=== PATIENT | male | born 1970 | race Caucasian/White ===

== ENCOUNTER 2018-10-02 10:03 | Outpatient (CLI) | payer OTHER ==
[2018-10-02 14:59] LABS: BASOPHILS # (AUTO) 0.1 10^3/uL (0.0-0.1); BASOPHILS % (AUTO) 0.9 %; EOSINOPHILS # (AUTO) 0.3 10^3/uL (0.0-0.7); HGB - HEMOGLOBIN 13.3 g/dL (14.0-18.0); LYMPHOCYTES # (AUTO) 1.9 10^3/uL (1.5-3.5); LYMPHOCYTES % (AUTO) 27.2 %; MEAN CORPUSCULAR HEMOGLOBIN 30.9 pg (27.0-31.0); MEAN CORPUSCULAR HGB CONC 34.5 g/dL (32.0-36.0); MEAN CORPUSCULAR VOLUME 89.5 fL (80.0-94.0); MEAN PLATELET VOLUME 8.6 fL (7.4-11.4); MONOCYTES # (AUTO) 0.4 10^3/uL (0.0-1.0); MONOCYTES % (AUTO) 5.8 %; NEUTROPHILS # (AUTO) 4.3 10^3/uL (1.5-6.6); NEUTROPHILS % (AUTO) 62.1 %; PLT - PLATELET COUNT 274 10^3/uL (130-450); RED CELL DISTRIBUTION WIDTH 13.2 % (12.0-15.0); WHITE BLOOD COUNT 6.9 x10^3/uL (4.8-10.8)
[2018-10-02 15:40] LABS: CHOL/HDL RATIO 4.1 (<5.0); CHOLESTEROL 190 mg/dL; HDL CHOLESTEROL 46 mg/dL; LDL CHOLESTEROL,CALCULATED 102 mg/dL; LDL/HDL RATIO 2.2 (<3.6); VLDL CHOLESTEROL 42 mg/dL
== END 2018-10-02 23:59 | disposition home or self-care (01) ==
LOC: LAB.WCP 10:03
PROVIDERS: ATTEND Family Medicine
DX: R22.1 Localized swelling, mass and lump, neck (principal)
CPT/HCPCS: 36415; 80061; 83721; 84443; 85025

== ENCOUNTER 2018-10-06 15:46 | Outpatient (CLI) | payer OTHER ==
--- NOTE | 2018-10-09 09:56 | Ultrasound Report ---
Reason: LOCALIZED SWELLING ON NECK Procedure Date: 10/06/2018 Accession Number: [id number] / [id number] Procedure: US - Head or Neck Soft Tissue CPT Code: FULL RESULT: EXAM: NECK ULTRASOUND EXAM DATE: 10/06/2018 03:52 PM. CLINICAL HISTORY: LOCALIZED SWELLING ON NECK. COMPARISON: None. TECHNIQUE: Real-time sonographic imaging was performed by the security alarm installer utilizing color-flow. Multiple product sales representative static images were saved for review. FINDINGS: The palpable region of the left postauricular is a vascular heterogeneous 1.7 x 0.9 x 0.7 cm density. This does not have the typical appearance of a lymph node. This is adjacent to parotid gland. Portions of parotid gland seen are unremarkable. IMPRESSION: Indeterminate post auricular vascular heterogeneous 1.7 x 0.9 x 0.7 cm density. Further evaluation could be with CT RADIA
== END 2018-10-06 15:47 | disposition home or self-care (01) ==
LOC: DI 15:46
PROVIDERS: ATTEND Family Medicine
DX: R22.1 Localized swelling, mass and lump, neck (principal)
CPT/HCPCS: 76536

== ENCOUNTER 2018-10-18 14:42 | Outpatient (CLI) | payer OTHER ==
[2018-10-18] MEDS ORDERED: IOVERSOL 320 100 ML VIAL IVP ONE ×2 (14:55→16:22)
--- NOTE | 2018-10-18 15:51 | CT Report ---
Reason: LOCALIZED SWELLING ON NECK Procedure Date: 10/18/2018 Accession Number: [id number] / [id number] Procedure: CT - Neck Soft Tissue W/ CPT Code: FULL RESULT: EXAM: CT SOFT TISSUE NECK WITH CONTRAST. EXAM DATE: 10/18/2018 03:10 PM. HISTORY: 48-year-old male, localized swelling on neck. COMPARISONS: Ultrasound soft tissue neck 10/06/2018 TECHNIQUE: Routine soft tissue neck CT protocol. Reconstructions: Coronal and sagittal. IV contrast: 80 cc Optiray 320. In accordance with CT protocol optimization, one or more of the following dose reduction techniques were utilized for this exam: automated exposure control, adjustment of mA and/or KV based on patient size, or use of iterative reconstructive technique. FINDINGS: Visualized Intracranial Contents: Unremarkable. Orbits: Symmetric and unremarkable. Sinuses: Minimal mucosal thickening bilateral maxillary sinuses. The remaining visualized paranasal sinuses are clear. The mastoid air cells are clear. Oral cavity: The visualized oral cavity is unremarkable. The floor of the mouth is symmetric. Pharynx : Pharyngeal mucosa is unremarkable. The infratemporal fossa, parapharyngeal spaces, and retropharyngeal space are unremarkable. The base of the tongue is symmetric and unremarkable. The airway is patent. Larynx: Larynx and supraglottic airway are patent without mass lesion. Vocal cords are symmetric. The visualized trachea is unremarkable. Parotid and Submandibular Glands: Symmetric and unremarkable. Lymph Nodes: No enlarged lymph nodes are identified in the cervical, supraclavicular, and visualized superior mediastinal regions. Soft tissues: Soft tissues are unremarkable. No mass lesion or abnormal enhancement. Specifically, no soft tissue mass is seen underlying the BB marker, which is located inferior to the left parotid gland (series 3 image 49, series 5 image 47). Nonspecific vessels are seen within the underlying fat. Vascular Structures: Unremarkable. Thyroid Gland: There is an 8 mm hypodense lesion within the right thyroid lobe (series 3 image 104). Given subcentimeter size, no further follow-up is suggested. Lung: The visualized lung apices are clear. Bones: No evidence of acute fracture or malalignment. There are mild degenerative changes. Other: None. IMPRESSION: 1. Soft tissues are unremarkable. No mass lesion or abnormal enhancement. Specifically, no soft tissue mass is seen underlying the BB marker, which is located inferior to the left parotid gland (series 3 image 49, series 5 image 47). Nonspecific vessels are seen within the underlying fat. 2. No evidence of cervical adenopathy, abscess, or mucosal abnormality. 3. There is an 8 mm hypodense lesion within the right thyroid lobe (series 3 image 104). Given subcentimeter size, no further follow-up is suggested. RADIA
== END 2018-10-18 14:43 | disposition home or self-care (01) ==
LOC: DI 14:42
PROVIDERS: ATTEND Family Medicine
DX: E07.89 Other specified disorders of thyroid (principal)
CPT/HCPCS: 70491; Q9967

== ENCOUNTER 2020-02-28 08:00 | Outpatient (CLI) | payer OTHER ==
[2020-02-28 13:30] LABS: BASOPHILS # (AUTO) 0.1 10^3/uL (0.0-0.1); BASOPHILS % (AUTO) 0.9 %; EOSINOPHILS # (AUTO) 0.2 10^3/uL (0.0-0.7); EOSINOPHILS % (AUTO) 2.8 %; HGB - HEMOGLOBIN 13.9 g/dL (14.0-18.0); LYMPHOCYTES # (AUTO) 1.6 10^3/uL (1.5-3.5); LYMPHOCYTES % (AUTO) 27.3 %; MEAN CORPUSCULAR HEMOGLOBIN 29.4 pg (27.0-31.0); MEAN CORPUSCULAR HGB CONC 32.9 g/dL (32.0-36.0); MEAN CORPUSCULAR VOLUME 89.6 fL (80.0-94.0); MEAN PLATELET VOLUME 10.1 fL (7.4-11.4); MONOCYTES # (AUTO) 0.3 10^3/uL (0.0-1.0); MONOCYTES % (AUTO) 5.6 %; NEUTROPHILS # (AUTO) 3.6 10^3/uL (1.5-6.6); NEUTROPHILS % (AUTO) 63.1 %; PLT - PLATELET COUNT 315 10^3/uL (130-450); RED BLOOD COUNT 4.72 10^6/uL (4.70-6.10); RED CELL DISTRIBUTION WIDTH 12.8 % (12.0-15.0); WHITE BLOOD COUNT 5.7 x10^3/uL (4.8-10.8)
[2020-02-28 13:44] LABS: ALBUMIN/GLOBULIN RATIO 1.3 (1.0-2.2); ALKALINE PHOSPHATASE 49 IU/L (42-121); ALT ALANINE AMINOTRANSFERASE 30 IU/L (10-60); AST ASPARTATE AMINOTRANSFERASE 25 IU/L (10-42); BILIRUBIN,TOTAL 0.7 mg/dL (0.2-1.0); BUN - BLOOD UREA NITROGEN 27 mg/dL (6-20); CARBON DIOXIDE - CO2 23 mmol/L (21-32); CHLORIDE 105 mmol/L (101-111); CHOL/HDL RATIO 2.9 (<5.0); CHOLESTEROL 178 mg/dL; CREATININE 0.8 mg/dL (0.6-1.2); GLUCOSE 121 mg/dL (70-100); HDL CHOLESTEROL 61 mg/dL; LDL CHOLESTEROL,CALCULATED 100 mg/dL; LDL/HDL RATIO 1.6 (<3.6); SODIUM 135 mmol/L (135-145); TOTAL PROTEIN 7.1 g/dL (6.7-8.2); VLDL CHOLESTEROL 17 mg/dL
== END 2020-02-28 08:01 | disposition home or self-care (01) ==
LOC: LAB.WCP 08:00
PROVIDERS: ATTEND Family Medicine
DX: I10 Essential (primary) hypertension (principal); N52.9 Male erectile dysfunction, unspecified; Z12.5 Encounter for screening for malignant neoplasm of prostate
CPT/HCPCS: 36415; 80053; 80061; 81599; 83721; 84153; 84270; 84402; 84403; 84443; 85025

== ENCOUNTER 2020-12-02 13:57 | Outpatient (CLI) | payer OTHER ==
--- NOTE | 2020-12-02 15:56 | XRAY Report ---
PROCEDURE: Lumbar Spine Complete INDICATIONS: LOW BACK PAIN, CHRONIC TECHNIQUE: views of the lumbar spine were acquired. COMPARISON: None. FINDINGS: Bones: 5 [id number]-iyt-[id number] vertebrae are present. Disc space narrowing, endplate osteophyte formation , and facet hypertrophy L3-L4, L4-L5, and L5-S1. There is normal bony alignment. No vertebral body c ompression fractures. No suspicious bony lesions. Soft tissues: Overlying bowel gas pattern is normal. No suspicious soft tissue calcifications. IMPRESSION: Degenerative disc and facet disease. No acute fracture. No osseous lesion. If symptoms a nd/or clinical suspicion for pathology continue, further assessment with repeat plain films, or advan nuria imaging (e.g., CT, MRI, or bone scan) is recommended for further assessment. Reviewed by: Josh Luque MD on 12/02/2020 3:54 PM PST Approved by: Josh Luque MD on 12/02/2020 3:54 PM PST Station ID: [id number]
== END 2020-12-02 13:58 | disposition home or self-care (01) ==
LOC: DI 13:57
PROVIDERS: ATTEND Family Medicine
DX: M54.5 Low back pain (principal); G89.29 Other chronic pain; M51.36 Other intervertebral disc degeneration, lumbar region

== ENCOUNTER 2022-08-06 09:19 | Outpatient (CLI) | payer OTHER ==
[2022-08-06 12:10] LABS: BASOPHILS # (AUTO) 0.1 10^3/uL (0.0-0.1); BASOPHILS % (AUTO) 0.9 %; EOSINOPHILS # (AUTO) 0.2 10^3/uL (0.0-0.7); EOSINOPHILS % (AUTO) 2.9 %; HCT - HEMATOCRIT 45.8 % (42.0-52.0); HGB - HEMOGLOBIN 15.3 g/dL (14.0-18.0); LYMPHOCYTES # (AUTO) 1.7 10^3/uL (1.5-3.5); LYMPHOCYTES % (AUTO) 28.7 %; MEAN CORPUSCULAR HEMOGLOBIN 30.6 pg (27.0-31.0); MEAN CORPUSCULAR HGB CONC 33.4 g/dL (32.0-36.0); MEAN CORPUSCULAR VOLUME 91.6 fL (80.0-94.0); MEAN PLATELET VOLUME 10.2 fL (7.4-11.4); MONOCYTES # (AUTO) 0.4 10^3/uL (0.0-1.0); MONOCYTES % (AUTO) 6.8 %; NEUTROPHILS # (AUTO) 3.6 10^3/uL (1.5-6.6); NEUTROPHILS % (AUTO) 60.4 %; PLT - PLATELET COUNT 303 10^3/uL (130-450); RED CELL DISTRIBUTION WIDTH 12.1 % (12.0-15.0); WHITE BLOOD COUNT 5.9 x10^3/uL (4.8-10.8)
[2022-08-06 12:40] LABS: ALBUMIN 4.5 g/dL (3.2-5.5); ALBUMIN/GLOBULIN RATIO 1.4 (1.0-2.2); ALKALINE PHOSPHATASE 55 IU/L (42-121); ALT ALANINE AMINOTRANSFERASE 45 IU/L (10-60); AST ASPARTATE AMINOTRANSFERASE 29 IU/L (10-42); BILIRUBIN,TOTAL 0.7 mg/dL (0.2-1.0); BUN - BLOOD UREA NITROGEN 23 mg/dL (6-20); CALCIUM 9.3 mg/dL (8.5-10.3); CARBON DIOXIDE - CO2 27 mmol/L (21-32); CHLORIDE 101 mmol/L (101-111); CHOL/HDL RATIO 3.7 (<5.0); CHOLESTEROL 183 mg/dL; CREATININE 0.9 mg/dL (0.6-1.2); GFR - MDRD 90 (>89); GLUCOSE 113 mg/dL (70-100); HDL CHOLESTEROL 49 mg/dL; LDL CHOLESTEROL,CALCULATED 116 mg/dL; LDL/HDL RATIO 2.4 (<3.6); POTASSIUM 4.3 mmol/L (3.5-5.0); SODIUM 136 mmol/L (135-145); TOTAL PROTEIN 7.7 g/dL (6.7-8.2); TRIGLYCERIDES 91 mg/dL; VLDL CHOLESTEROL 18 mg/dL
[2022-08-06 12:45] LABS: THYROID STIMULATING HORMONE 1.4 uIU/mL (0.34-5.60)
== END 2022-08-06 09:20 | disposition home or self-care (01) ==
LOC: LAB.N 09:19
PROVIDERS: ATTEND Family Medicine
DX: I10 Essential (primary) hypertension (principal); M54.50 Low back pain, unspecified; G89.29 Other chronic pain; M47.816 Spondylosis without myelopathy or radiculopathy, lumbar region
CPT/HCPCS: 36415; 80053; 80061; 83721; 84443; 85025

== ENCOUNTER 2022-11-09 15:53 | Outpatient (CLI) | payer OTHER | END 2022-11-09 15:54 | disposition home or self-care (01) | LOC: LAB.N 15:53 | PROVIDERS: ATTEND Family Medicine | DX: Z53.9 Procedure and treatment not carried out, unspecified reason (principal) ==

== ENCOUNTER 2022-11-18 08:00 | Outpatient (CLI) | payer OTHER | END 2022-11-18 23:59 | disposition home or self-care (01) | LOC: LAB.N 08:00 | PROVIDERS: ATTEND Family Medicine | DX: R19.7 Diarrhea, unspecified (principal) | CPT/HCPCS: 83630; 87045; 87046; 87329; 87427; 87493 ==

== ENCOUNTER 2023-04-22 08:21 | Day surgery (SDC) | payer OTHER ==
[~2023-04-22 08:21] MED LIST: PROPOFOL 500 MG/50 ML 500 MG/50 ML VIAL ONE
[2023-04-22] MEDS ORDERED: LACTATED RINGERS 1,000 ML IV ONE ×2 (08:59→09:52)
--- NOTE | 2023-04-22 09:08 | ANESTHESIA ---
Pre-Anesthesia VS, & Labs - Diagnosis family hx of colon CA - Procedure colonoscopy Vital Signs: Temp Pulse Resp BP Pulse Ox O2 Flow Rate 36.9 C 77 16 140/90 H 97 04/22/23 08:34 04/22/23 08:34 04/22/23 08:34 04/22/23 08:34 04/22/23 08:34 Height: 5 ft 9 in Weight (kg): 94 kg Body Mass Index: 30.6 BMI Classification: Obese - NPO >8 hours Home Medications and Allergies Home Medications: Ambulatory Orders Glucosamine HCl/Chondroitin Mcleod [Glucosamine-Chondroitin Cap] 1 cap PO DAILY 04/21/23 Lisinopril [Zestril] 20 mg PO DAILY 04/21/23 [place]-3/Dha/Epa/Fish Oil [Fish Oil 1,000 mg Softgel] 1 each PO DAILY 04/21/23 hydroCHLOROthiazide [Hydrodiuril] 25 mg PO DAILY 04/21/23 Glucosamine HCl/Chondroitin Mcleod [Glucosamine-Chondroitin Cap] 1 cap PO DAILY 04/21/23 Lisinopril [Zestril] 20 mg PO DAILY 04/21/23 [place]-3/Dha/Epa/Fish Oil [Fish Oil 1,000 mg Softgel] 1 each PO DAILY 04/21/23 hydroCHLOROthiazide [Hydrodiuril] 25 mg PO DAILY 04/21/23 Allergies/Adverse Reactions: Allergies Allergy/AdvReac Type Severity Reaction Status Date / Time No Known Drug Allergies Allergy Verified 09/26/13 10:03 Anes History & Medical History - Anesthetic History Anesthesia Complications: reports: No previous complications Family history of Anesthesia Complications: Denies Family history of Malignant Hyperthermia: Denies - Medical History Cardiovascular: reports: Hypertension Musculoskeletal: reports: Osteoarthritis - Surgical History General: reports: Colonoscopy Eyes Ears Nose Throat (EENT): reports: Other Exam General: Alert, Oriented x3, Cooperative Dental: WNL Mouth Openin Fingerbreadth Neck Mobility: Normal Mallampati classification: II Thyromental Distance: 4-6 cm Respiratory: Lungs clear Cardiovascular: Regular rate Plan Anesthesia Type: General, Total IV Consent for Procedure(s) Verified and Reviewed: Yes Code Status: Attempt Resuscitation ASA classification: 2-Mild systemic disease Is this case an emergency?: No
--- NOTE | 2023-04-22 09:20 | HISTORY & PHYSICAL EXAMINATION ---
Chief Complaint - Chief Complaint Chief Complaint: here for colonoscopy History of Present Illness - History Obtained From Records Reviewed: yes History obtained from: pt Exam Limitations: none - History of Present Illness HPI Comment/Other: here for screening colonoscopy. many family members with cancer. no first degree relatives colon cancer History - Past Medical History Cardiovascular: reports: Hypertension Psych: reports: Depression, Anxiety Musculoskeletal: reports: Osteoarthritis MRSA Hx?: No - Past Surgical History General: reports: Colonoscopy HEENT: reports: Other Meds/Allgy - Home Medications Home Medications: Ambulatory Orders Medication Instructions Recorded Confirmed Glucosamine HCl/Chondroitin Mcleod 1 cap PO DAILY 04/21/23 04/21/23 [Glucosamine-Chondroitin Cap] Lisinopril [Zestril] 20 mg PO DAILY 04/21/23 04/21/23 [place]-3/Dha/Epa/Fish Oil [Fish Oil 1 each PO DAILY 04/21/23 04/21/23 1,000 mg Softgel] hydroCHLOROthiazide [Hydrodiuril] 25 mg PO DAILY 04/21/23 04/21/23 - Allergies Allergies/Adverse Reactions: Allergies Allergy/AdvReac Type Severity Reaction Status Date / Time No Known Drug Allergies Allergy Verified 09/26/13 10:03 Review of Systems - Other Findings Other Findings: 10 pt ros as above otherwise unremarkable Exam - Vital Signs Vital Signs: Vital Signs x48h Temp Pulse Resp BP Pulse Ox 04/22/23 08:34 36.9 C 77 16 140/90 H 97 - Physical Exam General Appearance: positive: No acute distress, Alert Eyes Bilateral: positive: PERRL, EOMI ENT: positive: No signs of dehydration Neck: positive: No JVD, Trachea midline Respiratory: positive: Breath sounds nml Cardiovascular: positive: Regular rate & rhythm Abdomen: positive: No distention Neurologic/Psychiatric: positive: Oriented x3 Conclusion/Plan - Problem List (1) Colon cancer screening Conclusion/Plan: plan colonoscopy. parq held and consent obtained
[2023-04-22] MEDS ORDERED: MIDAZOLAM 2 MG/2 ML VIAL ONE (09:28)
[2023-04-22] MEDS ORDERED: PROPOFOL 200 MG/20 ML VIAL IVP ONE (09:46)
[2023-04-22 10:24] VITALS: BP 108/71
== END 2023-04-22 08:22 | disposition home or self-care (01) ==
LOC: SDS 08:21
PROVIDERS: ATTEND Surgery
DX: Z12.11 Encounter for screening for malignant neoplasm of colon (principal); F41.9 Anxiety disorder, unspecified; E66.9 Obesity, unspecified; Z68.30 Body mass index [BMI] 30.0-30.9, adult; Z80.0 Family history of malignant neoplasm of digestive organs
CPT/HCPCS: 45378; J7120

== ENCOUNTER 2024-06-12 07:30 | Outpatient (CLI) | payer OTHER ==
--- NOTE | 2024-06-12 13:32 | XRAY Report ---
PROCEDURE: Lumbar Spine 2-3V INDICATIONS: LOW BACK PAIN CHRONIC TECHNIQUE: 2 views of the lumbar spine were acquired. COMPARISON: Lumbar spine radiographs 12/02/2020 FINDINGS: Surgical change: None. Bones: Transitional spinal anatomy is present. For the purposes of this report, the thoracolumbar tra nsitional element is designated as T12 with a rudimentary left-sided rib and the lumbosacral transiti onal element is designated as L5, which is partially sacralized on the right. There is normal bony alignment. No vertebral body compression fractures. No suspicious bony lesions. Multilevel disc space narrowing and degenerative endplate changes. Multilevel facet hypertrophy. Soft tissues: Overlying bowel gas pattern is normal. No suspicious soft tissue calcifications. IMPRESSION: Moderate multilevel lumbar spondylosis, similar when compared to the radiographs from 12/02/2020. Reviewed by: Demetrio Abreu MD on 06/12/2024 1:31 PM PDT Approved by: Demetrio Abreu MD on 06/12/2024 1:31 PM PDT Station ID: [id number]
== END 2024-06-12 07:45 | disposition home or self-care (01) ==
LOC: DI.N 07:30
PROVIDERS: ATTEND Family Medicine
DX: M47.816 Spondylosis without myelopathy or radiculopathy, lumbar region (principal)